=== PATIENT | male | born 2000 | race Caucasian/White ===

== ENCOUNTER 2025-07-17 17:28 | Emergency (ER) | payer MEDICAID | END 2025-07-17 20:06 | disposition home or self-care (01) | LOC: FB.ED 17:28 | DX: S06.0X1A Concussion with loss of consciousness of 30 minutes or less, initial encounter (principal); S80.02XA Contusion of left knee, initial encounter; F17.200 Nicotine dependence, unspecified, uncomplicated; W22.8XXA Striking against or struck by other objects, initial encounter | CPT/HCPCS: 70450; 72125; 73560-LT; 99284; 99285 ==